=== PATIENT | female | born 1945 | race Caucasian/White ===

== ENCOUNTER 2018-04-28 17:19 | Inpatient (IN) | payer MEDICARE ==
--- NOTE | 2018-04-28 17:49 | ED ---
General Adult HPI - General Chief complaint: Chest Pain Stated complaint: Chest Pressure/Nausea Time Seen by Provider: 04/28/18 17:37 Source: patient, RN notes reviewed, old records reviewed Mode of arrival: wheelchair Limitations: no limitations - History of Present Illness Initial comments: This is a 72-year-old female to the ER for evaluation. Patient resents today for evaluation regarding chest pain. History of CAD history of high blood pressure high cholesterol. Patient has severe anterior chest pain or shortness of breath and diaphoresis prior to arrival. Patient's pain is waxing weighs was now improved. No recent travel history no sick contacts of fever cough or congestion - Related Data Home Medications Medication Instructions Recorded Confirmed Lisinopril Unknown Dose 1 tab PO DAILY 04/28/18 04/28/18 Metoprolol Unknown Dose 1 tab PO DAILY 04/28/18 04/28/18 Prozac Unknown Dose 1 tab PO DAILY 04/28/18 04/28/18 Zocor Unknown Dose 1 tab PO DAILY 04/28/18 04/28/18 Allergies Allergy/AdvReac Type Severity Reaction Status Date / Time No Known Allergies Allergy Verified 04/28/18 18:22 Review of Systems ROS Statement: Those systems with pertinent positive or pertinent negative responses have been documented in the HPI. ROS Other: All systems not noted in ROS Statement are negative. Past Medical History Past Medical History: Coronary Artery Disease (CAD), Hyperlipidemia, Hypertension History of Any Multi-Drug Resistant Organisms: None Reported Additional Past Surgical History / Comment(s): eyes Past Psychological History: No Psychological Hx Reported Smoking Status: Current every day smoker Past Alcohol Use History: Occasional Past Drug Use History: None Reported General Exam Limitations: no limitations General appearance: alert, in no apparent distress Head exam: Present: atraumatic, normocephalic, normal inspection Eye exam: Present: normal appearance, PERRL, EOMI. Absent: scleral icterus, conjunctival injection, periorbital swelling ENT exam: Present: normal exam, mucous membranes moist Neck exam: Present: normal inspection. Absent: tenderness, meningismus, lymphadenopathy Respiratory exam: Present: normal lung sounds bilaterally. Absent: respiratory distress, wheezes, rales, rhonchi, stridor Cardiovascular Exam: Present: regular rate, normal rhythm, normal heart sounds. Absent: systolic murmur, diastolic murmur, rubs, gallop, clicks GI/Abdominal exam: Present: soft, normal bowel sounds. Absent: distended, tenderness, guarding, rebound, rigid Extremities exam: Present: normal inspection, full ROM, normal capillary refill. Absent: tenderness, pedal edema, joint swelling, calf tenderness Back exam: Present: normal inspection Neurological exam: Present: alert, oriented X3, CN II-XII intact Psychiatric exam: Present: normal affect, normal mood Skin exam: Present: warm, dry, intact, normal color. Absent: rash Course Vital Signs 04/28/18 04/28/18 17:22 19:25 Temperature 97.4 F L Pulse Rate 76 82 Respiratory 18 20 Rate Blood Pressure 144/84 165/86 O2 Sat by Pulse 100 99 Oximetry - Reevaluation(s) Reevaluation #1: 04/28/18 21:31 Patient having recurrent chest pain currently, no diaphoresis no shortness of breath EKG Findings - EKG Comments: EKG Findings:: EKG shows normal sinus rhythm rate of 74, W[place] 164, QRS 138, QTC 5: 30 Medical Decision Making - Medical Decision Making 72 female the ER for evaluation. Patient presents today for evaluation of chest pain. CT suboptimal, troponin negative. Patient does have recurrent pain will be admitted for cardiac observation - Lab Data Result diagrams: 04/28/18 18:00 04/28/18 18:00 Lab Results 04/28/18 04/28/18 04/28/18 Range/Units 18:00 18:00 18:00 WBC 10.3 (3.8-10.6) k/uL RBC 4.30 (3.80-5.40) m/uL Hgb 12.7 (11.4-16.0) gm/dL Hct 39.4 (34.0-46.0) % MCV 91.6 (80.0-100.0) fL MCH 29.5 (25.0-35.0) pg MCHC 32.2 (31.0-37.0) g/dL RDW 14.3 (11.5-15.5) % Plt Count 276 (150-450) k/uL Neutrophils % 73 % Lymphocytes % 19 % Monocytes % 6 % Eosinophils % 1 % Basophils % 0 % Neutrophils # 7.5 (1.3-7.7) k/uL Lymphocytes # 1.9 (1.0-4.8) k/uL Monocytes # 0.6 (0-1.0) k/uL Eosinophils # 0.1 (0-0.7) k/uL Basophils # 0.0 (0-0.2) k/uL PT (9.0-12.0) sec INR (<1.2) APTT (22.0-30.0) sec D-Dimer (<0.60) mg/L FEU Sodium 141 (137-145) mmol/L Potassium 4.6 (3.5-5.1) mmol/L Chloride 102 (98-107) mmol/L Carbon Dioxide 24 (22-30) mmol/L Anion Gap 15 mmol/L BUN 24 H (7-17) mg/dL Creatinine 1.30 H (0.52-1.04) mg/dL Est GFR (CKD-EPI)AfAm 48 (>60 ml/min/1.73 sqM) Est GFR (CKD-EPI)NonAf 41 (>60 ml/min/1.73 sqM) Glucose 135 H (74-99) mg/dL Calcium 10.0 (8.4-10.2) mg/dL Magnesium 1.8 (1.6-2.3) mg/dL Total Bilirubin 0.4 (0.2-1.3) mg/dL AST 23 (14-36) U/L ALT 25 (9-52) U/L Alkaline Phosphatase 61 (38-126) U/L Total Creatine Kinase 51 (30-135) U/L CK-MB (CK-2) <0.2 (0.0-2.4) ng/mL CK-MB (CK-2) Rel Index Troponin I <0.012 (0.000-0.034) ng/mL Total Protein 7.9 (6.3-8.2) g/dL Albumin 4.6 (3.5-5.0) g/dL Lipase 143 (23-300) U/L 04/28/18 Range/Units 18:00 WBC (3.8-10.6) k/uL RBC (3.80-5.40) m/uL Hgb (11.4-16.0) gm/dL Hct (34.0-46.0) % MCV (80.0-100.0) fL MCH (25.0-35.0) pg MCHC (31.0-37.0) g/dL RDW (11.5-15.5) % Plt Count (150-450) k/uL Neutrophils % % Lymphocytes % % Monocytes % % Eosinophils % % Basophils % % Neutrophils # (1.3-7.7) k/uL Lymphocytes # (1.0-4.8) k/uL Monocytes # (0-1.0) k/uL Eosinophils # (0-0.7) k/uL Basophils # (0-0.2) k/uL PT 10.2 (9.0-12.0) sec INR 1.0 (<1.2) APTT 20.9 L (22.0-30.0) sec D-Dimer 4.32 H (<0.60) mg/L FEU Sodium (137-145) mmol/L Potassium (3.5-5.1) mmol/L Chloride (98-107) mmol/L Carbon Dioxide (22-30) mmol/L Anion Gap mmol/L BUN (7-17) mg/dL Creatinine (0.52-1.04) mg/dL Est GFR (CKD-EPI)AfAm (>60 ml/min/1.73 sqM) Est GFR (CKD-EPI)NonAf (>60 ml/min/1.73 sqM) Glucose (74-99) mg/dL Calcium (8.4-10.2) mg/dL Magnesium (1.6-2.3) mg/dL Total Bilirubin (0.2-1.3) mg/dL AST (14-36) U/L ALT (9-52) U/L Alkaline Phosphatase (38-126) U/L Total Creatine Kinase (30-135) U/L CK-MB (CK-2) (0.0-2.4) ng/mL CK-MB (CK-2) Rel Index Troponin I (0.000-0.034) ng/mL Total Protein (6.3-8.2) g/dL Albumin (3.5-5.0) g/dL Lipase (23-300) U/L - Radiology Data Radiology results: report reviewed (Chest x-ray negative CTA chest suboptimal), image reviewed Critical Care Time Critical Care Time: Yes Total Critical Care Time: 31 Disposition Clinical Impression: Chest pain Disposition: ADMITTED IP TO THIS [facility] Condition: Undetermined Instructions: Chest Pain (ED) Is patient prescribed a controlled substance at d/c from ED?: No Referrals: Nonstaff,Physician [REFERRING] - 1-2 days
[2018-04-28 18:38] LABS: Basophils % (A) 0 %; Eosinophils # (A) 0.1 k/uL (0-0.7); Eosinophils % (A) 1 %; HCT 39.4 % (34.0-46.0); HGB 12.7 gm/dL (11.4-16.0); Lymphocytes # (A) 1.9 k/uL (1.0-4.8); Lymphocytes % (A) 19 %; MCH 29.5 pg (25.0-35.0); MCHC 32.2 g/dL (31.0-37.0); MCV 91.6 fL (80.0-100.0); Monocytes # (A) 0.6 k/uL (0-1.0); Monocytes % (A) 6 %; Neutrophils # (A) 7.5 k/uL (1.3-7.7); Neutrophils % (A) 73 %; Platelet Count 276 k/uL (150-450); RDW 14.3 % (11.5-15.5); WBC 10.3 k/uL (3.8-10.6)
[2018-04-28 18:46] LABS: Albumin 4.6 g/dL (3.5-5.0); Magnesium 1.8 mg/dL (1.6-2.3); Potassium 4.6 mmol/L (3.5-5.1); Total Bilirubin 0.4 mg/dL (0.2-1.3); Total Protein 7.9 g/dL (6.3-8.2)
--- NOTE | 2018-04-28 18:57 | XR ---
EXAMINATION TYPE: XR chest 2V DATE OF EXAM: 04/28/2018 COMPARISON: NONE HISTORY: Chest pain TECHNIQUE: Frontal and lateral views of the chest are obtained. FINDINGS: There is no focal air space opacity, pleural effusion, or pneumothorax seen. The cardiac silhouette size is within normal limits. The osseous structures are intact. There are overlying car diac leads. Prominent lung volume may be indicative of COPD, there is eventration of the hemidiaphrag ms. Aortic stent graft present within the abdomen. Compression deformity present. The thoracic lumbar junction. Bone mineralization is reduced. IMPRESSION: No acute cardiopulmonary process.
[2018-04-28 18:59] LABS: Prothrombin Time 10.2 sec (9.0-12.0)
[2018-04-28 19:03] LABS: Creatine Kinase 51 U/L (30-135)
[2018-04-28 19:11] LABS: D-Dimer 4.32 mg/L FEU (<0.60); Partial Thromboplastin Time 20.9 sec (22.0-30.0)
[2018-04-28 19:17] LABS: Creatine Kinase MB <0.2 ng/mL (0.0-2.4); Troponin I <0.012 ng/mL (0.000-0.034)
[2018-04-28] MEDS ORDERED: SODIUM CHLORIDE 0.9% 500 ML IV STA (20:34)
[2018-04-28] MEDS ORDERED: SODIUM CHLORIDE 0.9% 1,000 ML IV STA (20:34)
[2018-04-28] MEDS ORDERED: ASPIRIN 81 MG PO STA (21:28)
[2018-04-28] MEDS ORDERED: HEPARIN SODIUM,PORCINE 5,000 UNIT/ML 1 ML VIAL IV PRN (21:28)
[2018-04-28] MEDS ORDERED: HEPARIN SODIUM,PORCINE 5,000 UNIT/ML 1 ML VIAL IV ONE (21:28)
[2018-04-28] MEDS ORDERED: NITROGLYCERIN SL TABS 0.4 MG TAB SUBLINGUAL PRN (21:28)
--- NOTE | 2018-04-28 21:58 | CT ---
EXAMINATION TYPE: CT angio chest DATE OF EXAM: 04/28/2018 COMPARISON: Chest x-ray same date HISTORY: Chest pain, vomiting and diaphoretic today. CT DLP: 151.7 mGycm Automated exposure control for dose reduction was used. CONTRAST: CTA scan of the thorax is performed with IV Contrast, patient injected with 60ml mL of Isovue 370, pu lmonary embolism protocol. MIP images are created and reviewed. 3D reconstructed images are created on an independent workstation and reviewed. FINDINGS: LUNGS: The lungs are grossly clear, there is no concerning parenchymal mass or nodule identified. Ex tensive emphysematous changes are present within the lungs There is no pleural effusion or pneumothor ax seen. The tracheobronchial tree is patent. AORTA: No additional significant abnormality is seen. MEDIASTINUM: There is is no pulmonary embolism evident however contrast bolus is limited for evaluati on. There are no greater than 1 cm hilar or mediastinal lymph nodes. No pericardial effusion is see n. There are coronary artery calcifications. OTHER: Nonhealed 11th of 10th rib fractures are present on the right. Aortic stent graft present within the abdomen at the level of the superior mesenteric artery IMPRESSION: EMPHYSEMA. CORONARY ARTERY DISEASE. EXAM NONDIAGNOSTIC TO EXCLUDE EMBOLUS.
--- NOTE | 2018-04-28 23:58 | P.HPIM ---
History of Present Illness H&P Date: 04/28/18 Chief Complaint: chest pain 72-year-old female with history of CAD and hypertension. Patient presented to the hospital due to sudden onset chest pressure retrosternal nonradiating associated with nausea and vomiting and diaphoresis. Denies any shortness of breath. 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 She denies any emotional stressors or any physical activity. However she does report that she had not ate anything all day. Patient denies any exertional dyspnea or chest pain. She admits to smoking a pack of cigarettes every day. In the emergency department she was found to have elevated d-dimer, EKG showing tachycardia, CT angiogram the chest was performed however was poor preparation was not conclusive regarding an embolus. However patient is not hypoxic denies any shortness of breath or chest pain at this time. Patient was also found to have elevated creatinine slightly, and elevated blood sugar. Patient otherwise denies any changes in her vision or hearing, denies any headache, denies any trouble breathing, denies any abdominal pain, denies any diarrhea or constipation, denies any changes in urinary habits, denies any focal neurologic Review of Systems Pertinent positives as noted in HPI. All other systems were reviewed and are negative Past Medical History Past Medical History: Coronary Artery Disease (CAD), Hyperlipidemia, Hypertension Additional Past Medical History / Comment(s): AAA status post stenting History of Any Multi-Drug Resistant Organisms: None Reported Additional Past Surgical History / Comment(s): eyes Past Psychological History: No Psychological Hx Reported Smoking Status: Current every day smoker Past Alcohol Use History: Occasional Past Drug Use History: None Reported - Past Family History Family Additional Family Medical History / Comment(s): Breast cancer runs in her maternal side of the family Medications and Allergies Home Medications Medication Instructions Recorded Confirmed Type Lisinopril Unknown Dose 1 tab PO DAILY 04/28/18 04/28/18 History Metoprolol Unknown Dose 1 tab PO DAILY 04/28/18 04/28/18 History Prozac Unknown Dose 1 tab PO DAILY 04/28/18 04/28/18 History Zocor Unknown Dose 1 tab PO DAILY 04/28/18 04/28/18 History Allergies Allergy/AdvReac Type Severity Reaction Status Date / Time No Known Allergies Allergy Verified 04/28/18 18:22 Physical Exam Vitals: Vital Signs Temp Pulse Resp BP Pulse Ox 04/28/18 21:26 98.3 F 76 20 189/84 99 04/28/18 20:30 77 20 170/84 99 04/28/18 19:25 82 20 165/86 99 04/28/18 17:22 97.4 F L 76 18 144/84 100 Intake and Output 04/28/18 04/28/18 04/28/18 06:59 14:59 22:59 Other: Weight 63.049 kg Constitutional: No acute distress, conversant, pleasant Eyes: Anicteric sclerae, moist conjunctiva, no lid-lag Pupils equal round reactive to light ENMT: NC/AT Oropharynx clear, no erythema, or exudates Neck: Supple, FROM, no masses, or JVD No carotid bruits No thyromegaly Lungs: Clear to auscultation Clear to percussion Normal respiratory effort, no accessory muscle use Cardiovascular: Heart regular in rate and rhythm, No murmurs, gallops, or rubs No peripheral edema Abdominal: Soft Nontender, no guarding, rebound or rigidity Abdomen moving with respiration Normoactive bowel sounds No hepatomegaly, No splenomegaly No palpable mass No abdominal wall hernia noted Skin: Normal temperature, tone, texture, turgor No induration No subcutaneous nodules No rash, lesions No ulcers Extremities: No digital cyanosis No clubbing Pedal pulses intact and symmetrical Radial pulses intact and symmetrical No calf tenderness Psychiatric: Alert and oriented to person, place and time Appropriate affect fair judgment Neuro Muscles Strength 5/5 in all 4 extremities Sensation to light touch grossly present throughout Cranial nerves II-XII grossly intact No focal sensory deficits Lymphatics: no palpable cervical or supraclavicular , or inguinal lymph nodes Results CBC & Chem 7: 04/28/18 18:00 04/28/18 18:00 Labs: Abnormal Lab Results - Last 24 Hours (Table) 04/28/18 04/28/18 Range/Units 18:00 18:00 APTT 20.9 L (22.0-30.0) sec D-Dimer 4.32 H (<0.60) mg/L FEU BUN 24 H (7-17) mg/dL Creatinine 1.30 H (0.52-1.04) mg/dL Glucose 135 H (74-99) mg/dL Assessment and Plan Assessment: 72-year-old female with history of CAD and hypertension and hypercholesterolemia and active smoking. Patient admitted to the hospital under observation with anticipated length of stay of less than 2 days for chest pain to rule out acute coronary syndrome. Patient was also found to have elevated creatinine with acute kidney injury. Plan: Chest pain with atypical features rule out ACS History of carotid artery disease Acute kidney injury was slightly elevated creatinine unknown baseline Tobacco smoking Continue with statin, aspirin, metoprolol Lisinopril on hold due to a care Monitor cardiac profile and troponins Cardiology consult Patient counseled to quit smoking Nicotine replacement therapy DVT prophylaxis with heparin subcu 3 times a day Continue with Prozac for depression Check A1c due to elevated blood sugar while patient fasting Surrogate decision-maker: Patient has been Aram CODE STATUS: Full code Discussed with: Patient, ER, RN Anticipated discharge: <[address]: Home A total of 55 minutes was spent on the care of this complex patient more than 50 % of the time was spent in counseling and care coordination.
[2018-04-29] MEDS: HEPARIN SOD,PORK IN 0.45% NACL 25,000 UNIT in 0.45% NACL 1 500ML.BAG IV SCH (00:06)
[2018-04-29] MEDS: METOPROLOL TARTRATE 25 MG TAB PO SCH ×3 (01:00→20:05)
[2018-04-29] MEDS ORDERED: ALPRAZolam 1 MG TAB PO SCH (01:04)
[2018-04-29 01:05] LABS: Creatine Kinase MB 1.8 ng/mL (0.0-2.4); Troponin I 0.021 ng/mL (0.000-0.034)
[2018-04-29 07:47] LABS: Mean Platelet Volume 7.1; Platelet Count 231 k/uL (150-450)
[2018-04-29 08:00] LABS: Cholesterol 152 mg/dL (<200); HDL Cholesterol 47 mg/dL (40-60); LDL Cholesterol,Calculated 82 mg/dL (0-99); Triglycerides 116 mg/dL (<150)
[2018-04-29 08:29] LABS: Creatine Kinase MB 1.5 ng/mL (0.0-2.4)
[2018-04-29 08:35] LABS: Troponin I 0.059 ng/mL (0.000-0.034)
--- NOTE | 2018-04-29 08:47 | P.CRDCN ---
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 The patient was in her usual state of health where she was in the car with her when she developed chest discomfort in the mid of the chest without any radiation but she did have nausea and she vomited in the car and also she felt clammy. No shortness of breath. No dizziness or lightheadedness. And no syncope. The EKG showed sinus rhythm with RBBB and nonspecific changes in the anteroseptal leads. The first 2 sets of cardiac enzymes came in to be normal but the third one came in to be slightly abnormal. The d-dimer came in to be abnormal and she underwent a computed tomography scan of the chest but the computed tomography scan was suboptimal and PE could not be ruled out completely. Beside that the kidney function are slightly abnormal but the blood work from yesterday and I am obtaining a blood work to check her kidney function later on today. Clinically the patient continues to be pain-free after she was admitted to the hospital. Past Medical History Past Medical History: Coronary Artery Disease (CAD), Hyperlipidemia, Hypertension Additional Past Medical History / Comment(s): AAA status post stenting History of Any Multi-Drug Resistant Organisms: None Reported Past Surgical History: Heart Catheterization With Stent Additional Past Surgical History / Comment(s): eyes Past Anesthesia/Blood Transfusion Reactions: No Reported Reaction Date of Last Stent Placement:: 2010 Past Psychological History: No Psychological Hx Reported Smoking Status: Current every day smoker Past Alcohol Use History: Occasional Past Drug Use History: None Reported - Past Family History Family Additional Family Medical History / Comment(s): Breast cancer runs in her maternal side of the family Medications and Allergies Home Medications Medication Instructions Recorded Confirmed Type Lisinopril Unknown Dose 1 tab PO DAILY 04/28/18 04/28/18 History Metoprolol Unknown Dose 1 tab PO DAILY 04/28/18 04/28/18 History Prozac Unknown Dose 1 tab PO DAILY 04/28/18 04/28/18 History Zocor Unknown Dose 1 tab PO DAILY 04/28/18 04/28/18 History ALPRAZolam [Xanax] 1 mg PO HS 04/29/18 04/29/18 History Allergies Allergy/AdvReac Type Severity Reaction Status Date / Time No Known Allergies Allergy Verified 04/28/18 18:22 Physical Exam Vitals: Vital Signs Temp Pulse Pulse Resp BP BP Pulse Ox 04/29/18 07:28 97.9 F 65 18 124/68 95 04/29/18 04:23 18 04/29/18 04:00 97.7 F 73 18 127/76 94 L 04/29/18 01:00 18 04/29/18 00:27 97.7 F 74 18 196/101 96 04/28/18 23:00 98.1 F 81 20 172/83 98 04/28/18 21:26 98.3 F 76 20 189/84 99 04/28/18 20:30 77 20 170/84 99 04/28/18 19:25 82 20 165/86 99 04/28/18 17:22 97.4 F L 76 18 144/84 100 Intake and Output 04/28/18 04/29/18 04/29/18 22:59 06:59 14:59 Other: Voiding Method Toilet # Voids 1 Weight 63.049 kg - Constitutional General appearance: no acute distress - Respiratory Respiratory: bilateral: CTA - Cardiovascular Rhythm: regular Heart sounds: normal: S1, S2 Results 04/29/18 06:28 04/28/18 18:00 Cardiac Enzymes 04/28/18 04/28/18 04/29/18 Range/Units 18:00 18:00 00:14 AST 23 (14-36) U/L CK-MB (CK-2) <0.2 1.8 (0.0-2.4) ng/mL Troponin I <0.012 0.021 (0.000-0.034) ng/mL 04/29/18 Range/Units 06:28 AST (14-36) U/L CK-MB (CK-2) 1.5 (0.0-2.4) ng/mL Troponin I 0.059 H* (0.000-0.034) ng/mL Coagulation 04/28/18 04/28/18 04/29/18 Range/Units 18:00 22:09 06:28 PT 10.2 (9.0-12.0) sec APTT 20.9 L 22.2 49.2 H (22.0-30.0) sec Lipids 04/29/18 Range/Units 06:28 Triglycerides 116 (<150) mg/dL Cholesterol 152 (<200) mg/dL HDL Cholesterol 47 (40-60) mg/dL CBC 04/28/18 04/29/18 Range/Units 18:00 06:28 WBC 10.3 (3.8-10.6) k/uL RBC 4.30 (3.80-5.40) m/uL Hgb 12.7 (11.4-16.0) gm/dL Hct 39.4 (34.0-46.0) % Plt Count 276 231 (150-450) k/uL Comprehensive Metabolic Panel 04/28/18 Range/Units 18:00 Sodium 141 (137-145) mmol/L Potassium 4.6 (3.5-5.1) mmol/L Chloride 102 (98-107) mmol/L Carbon Dioxide 24 (22-30) mmol/L BUN 24 H (7-17) mg/dL Creatinine 1.30 H (0.52-1.04) mg/dL Glucose 135 H (74-99) mg/dL Calcium 10.0 (8.4-10.2) mg/dL AST 23 (14-36) U/L ALT 25 (9-52) U/L Alkaline Phosphatase 61 (38-126) U/L Total Protein 7.9 (6.3-8.2) g/dL Albumin 4.6 (3.5-5.0) g/dL Current Medications Generic Name Dose Route Start Last Admin Trade Name Freq PRN Reason Stop Dose Admin Alprazolam 1 mg 04/29/18 01:04 04/29/18 02:21 Xanax PO 1 mg HS AMY Administration Aspirin 325 mg 04/29/18 09:00 Aspirin PO DAILY [facility] Atorvastatin Calcium 80 mg 04/29/18 09:00 Lipitor PO DAILY [facility] Heparin Sodium (Porcine) 0 unit 04/28/18 21:28 Heparin IV Q6HR PRN Low PTT Protocol Heparin Sodium/Sodium Chloride 500 mls @ 15.13 mls/hr 04/28/18 21:30 00:06 25,000 unit/ Sodium Chloride IV 12 units/kg/hr .Q24H AMY 15.13 mls/hr Administration Protocol 12 UNITS/KG/HR Metoprolol Tartrate 25 mg 04/29/18 00:35 04/29/18 01:00 Lopressor PO 25 mg BID AMY Administration Nitroglycerin 0.4 mg 04/28/18 21:28 Nitrostat SUBLINGUAL Q5M PRN Chest Pain Intake and Output 04/28/18 04/29/18 04/29/18 22:59 06:59 14:59 Other: Voiding Method Toilet # Voids 1 Weight 63.049 kg 04/29/18 06:28 04/28/18 18:00 Assessment and Plan Assessment: Assessment #1 acute non-ST elevation myocardial infarction. #2 elevated d-dimer. The CT was suboptimal for PE #3 known coronary artery disease and status post stenting with unknown details. The stenting was performed out of the town in 2010 #4 peripheral arterial disease and status post aortic stent graft was performed in 2000 also out of the town #5 significant history of smoking Plan #1 giving the patient symptoms and abnormal cardiac enzymes and also abnormal EKG I did recommend proceeding with a coronary angiogram. #2 I am in process of obtaining kidney function to check the creatinine. I will plan to pursue with a heart cath either this afternoon or tomorrow morning. #3 meanwhile continue the current medical treatment which include aspirin, high intensity statin, and metoprolol and also heparin IV #4 obtain an echocardiogram was Doppler to assess the LV function and for wall motion abnormalities #5 follow-up with the patient Thank you for allowing us but spitting her care and we'll continue following up with the patient
[2018-04-29] MEDS ORDERED: METOPROLOL TARTRATE 25 MG TAB PO SCH (09:00)
[2018-04-29 09:35] LABS: Calcium 8.8 mg/dL (8.4-10.2)
--- NOTE | 2018-04-29 10:42 | NM ---
EXAMINATION TYPE: NM pul vent and perfuse DATE OF EXAM: 04/29/2018 COMPARISON: Chest x-ray and CT chest 04/28/2018 HISTORY: Pulmonary embolism, chest pain TECHNIQUE: Utilizing inhalation of 33.0 mCi Tc 99m DTPA aerosol and intravenous injection of 4.65 mC i of Tc 99m MAA, ventilation and perfusion images are acquired post injection in multiple projections . FINDINGS: Overall perfusion images show better radiopharmaceutical uptake on ventilation imaging. There is some central clumping of the radiopharmaceutical especially within the left lung. Some matched defects ar e present in the upper lobes. Emphysematous changes are present within the lungs. IMPRESSION: Low probability for pulmonary embolism. COPD.
[2018-04-29] MEDS: ASPIRIN 325 MG TAB PO SCH (10:46)
[2018-04-29] MEDS: ATORVASTATIN 80 MG TAB PO SCH (10:46)
[2018-04-29] MEDS ORDERED: SODIUM CHLORIDE 0.9% 1,000 ML in EMPTY BAG 1 BAG IV ONE (11:45)
[2018-04-29] MEDS ORDERED: ALPRAZolam 0.25 MG TAB PO PRN (11:45)
[2018-04-29] MEDS ORDERED: ALPRAZolam 0.5 MG TAB PO PRN (11:45)
[2018-04-29] MEDS ORDERED: NITROGLYCERIN SL TABS 0.4 MG TAB SUBLINGUAL PRN ×2 (11:45→15:50)
[2018-04-29] MEDS ORDERED: ASPIRIN 325 MG TAB PO STA (11:45)
[2018-04-29] MEDS ORDERED: ATORVASTATIN 80 MG TAB PO STA (11:45)
--- NOTE | 2018-04-29 14:16 | P.PN ---
Subjective Progress Note Date: 04/29/18 Principal diagnosis: Chest pain Patient is a 72-year-old female with a past medical history of coronary artery disease status post prior PCI, dyslipidemia, and hypertension who presented to the hospital with complaints of chest pain. She was admitted for cardiac monitoring. Her third troponin became positive. She was seen by cardiology who plans for cardiac catheterization. Patient seen and examined at bedside. She is currently chest pain-free, no shortness breath, no nausea, and no vomiting. Objective - Vital Signs Vital signs: Vital Signs Temp 98.4 F 04/29/18 11:34 Pulse 66 04/29/18 11:34 Resp 18 04/29/18 11:34 BP 162/77 04/29/18 11:34 Pulse Ox 96 04/29/18 11:34 Intake & Output 04/28/18 04/29/18 04/29/18 18:59 06:59 18:59 Weight 63.049 kg 63.049 kg Other: Voiding Method Toilet # Voids 1 3 - Exam General: non toxic, no distress, appears at stated age Derm: warm, dry Head: atraumatic, normocephalic, symmetric Eyes: EOMI, lateral deviation of left eye, no lid lag, anicteric sclera Mouth: no lip lesion, mucus membranes moist Cardiovascular: S1S2 reg, no murmur, positive posterior tibial pulse bilateral, Lungs: CTA bilateral, no rhonchi, no rales , no accessory muscle use Abdominal: soft, nontender to palpation, no guarding, no appreciable organomegaly Ext: no gross muscle atrophy, no edema, no contractures Neuro: CN II-XI grossly intact, no focal neuro deficits Psych: Alert, oriented, appropriate affect - Labs CBC & Chem 7: 04/29/18 06:28 04/29/18 06:28 Labs: Abnormal Lab Results - Last 24 Hours (Table) 04/28/18 04/28/18 04/29/18 Range/Units 18:00 18:00 06:28 APTT 20.9 L 49.2 H (22.0-30.0) sec D-Dimer 4.32 H (<0.60) mg/L FEU BUN 24 H (7-17) mg/dL Creatinine 1.30 H (0.52-1.04) mg/dL Glucose 135 H (74-99) mg/dL Troponin I (0.000-0.034) ng/mL 04/29/18 04/29/18 Range/Units 06:28 06:28 APTT (22.0-30.0) sec D-Dimer (<0.60) mg/L FEU BUN 21 H (7-17) mg/dL Creatinine 1.05 H (0.52-1.04) mg/dL Glucose (74-99) mg/dL Troponin I 0.059 H* (0.000-0.034) ng/mL Assessment and Plan Assessment: Non-ST segment elevated myocardial infarction with history of coronary artery disease -Heparin drip -Aspirin -Telemetry -Plan is for cardiac catheterization today -Beta philly -Statin Hypertension -Metoprolol and lisinopril -Follow blood pressures Dyslipidemia -LDL 82 which is at or near baseline -Continue with Lipitor -Likely Lipitor over simvastatin on discharge but could likely be decreased to 40 mg daily. HPI with unknown baseline -Rapidly improving -Repeat labs in a.m. -Continue IV fluid with tenorio contrast for heart catheterization Tobacco abuse -Cessation -Hold off on nicotine replacement currently DVT prophylaxis: heparin gtt Discussed with: nursing, patient Anticipated discharge: 04/30/[address]: home A total of 25 minutes was spent on the care of this complex patient more than 50 % of the time was spent in counseling and care coordination.
[2018-04-29] MEDS ORDERED: VERAPAMIL 2.5 MG/ML 2 ML AMP ONE (14:35)
[2018-04-29] MEDS ORDERED: MIDAZOLAM 2 MG/2 ML VIAL ONE (14:35)
[2018-04-29] MEDS ORDERED: HEPARIN SODIUM 1,000 UN/ML (10ML VL) ONE ×2 (14:36→15:08)
[2018-04-29] MEDS: MIDAZOLAM 2 MG/2 ML VIAL IVP ONE ×2 (15:05→15:25)
[2018-04-29] MEDS ORDERED: LIDOCAINE 2% INJ 20 MG/ML SQ ONE (15:06)
[2018-04-29] MEDS: VERAPAMIL SYRINGE (5 MG/10 ML) INTRAARTER ONE ×2 (15:06→15:45)
[2018-04-29] MEDS ORDERED: BIVALIRUDIN BOLUS 250 MG/50 ML IV ONE (15:24)
[2018-04-29] MEDS ORDERED: BIVALIRUDIN 250 MG in SODIUM CHLORIDE 0.9% 50 ML IV ONE (15:25)
[2018-04-29] MEDS: NITROGLYCERIN 1000MCG/10ML SYRINGE INTRACORON ONE ×2 (15:31→15:41)
[2018-04-29] MEDS ORDERED: CLOPIDOGREL 75 MG TAB ONE (15:38)
[2018-04-29] MEDS ORDERED: CLOPIDOGREL 75 MG TAB PO ONE (15:42)
[2018-04-29] MEDS ORDERED: IOPAMIDOL-370 125ML BTL INJ ONE (15:46)
[2018-04-29] MEDS ORDERED: ZOLPIDEM 5 MG TAB PO PRN (15:50)
[2018-04-29] MEDS ORDERED: MAG HYDROX/AL HYDROX/SIMETH 30 ML CUP PO PRN (15:50)
[2018-04-29] MEDS ORDERED: RX INFO: IV CONTRAST WAS GIVEN 1 EACH MISC MISCELLANE PRN (15:50)
[2018-04-29] MEDS ORDERED: ATROPINE SULFATE 0.1 MG/ML 10ML SYRINGE IV PRN (15:50)
[2018-04-29] MEDS ORDERED: SODIUM CHLORIDE 0.9% 1,000 ML IV SCH (16:00)
--- NOTE | 2018-04-29 20:47 | ECHOF ---
Referral Reason:nstemi MEASUREMENTS -------- HEIGHT: 170.2 cm WEIGHT: 63.0 kg BP: RVIDd: 2.8 cm (< 3.3) IVSd: 1.3 cm (0.6 - 1.1) LVIDd: 4.3 cm (3.9 - 5.3) LVPWd: 1.1 cm (0.6 - 1.1) IVSs: 1.6 cm LVIDs: 3.0 cm LVPWs: 1.6 cm LAESV Index (A-L): 29.32 ml/m Ao Diam: 2.8 cm (2.0 - 3.7) AV Cusp: 1.6 cm (1.5 - 2.6) LA Diam: 3.4 cm (2.7 - 3.8) MV EXCURSION: 11.106 mm (> 18.000) MV EF SLOPE: 53 mm/s (70 - 150) EPSS: 0.6 cm MV E Daniel: 0.84 m/s MV DecT: 225 ms MV A Daniel: 1.06 m/s MV E/A Ratio: 0.79 AR PHT: 496 ms RAP: 5.00 mmHg RVSP: 15.76 mmHg FINDINGS -------- Sinus rhythm. This was a technically good study. The left ventricular size is normal. There is mild concentric left ventricular hypertrophy. Overa ll left ventricular systolic function is normal with, an EF between 55 - 60 %. The right ventricle is normal in size and function. LA is midly dilated 29-33ml/m2. The right atrium is normal in size. Aortic valve is trileaflet and is mildly thickened. There is mild aortic regurgitation. The mitral valve leaflets are mildly thickened. [id number] mitral regurgitation is present. Mild tricuspid regurgitation present. The right ventricular systolic pressure, as measured by Doppl er, is 15.76mmHg. Pulmonic valve appears structurally normal. The aortic root size is normal. Normal inferior vena cava with normal inspiratory collapse consistent with estimated right atrial pre ssure of 5 mmHg. The pericardium is normal. CONCLUSIONS -------- 1. Sinus rhythm. 2. This was a technically good study. 3. The left ventricular size is normal. 4. There is mild concentric left ventricular hypertrophy. 5. Overall left ventricular systolic function is normal with, an EF between 55 - 60 %. 6. The right ventricle is normal in size and function. 7. LA is midly dilated 29-33ml/m2. 8. The right atrium is normal in size. 9. Aortic valve is trileaflet and is mildly thickened. 10. There is mild aortic regurgitation. 11. The mitral valve leaflets are mildly thickened. 12. Wsgj-nn-eplpkgph mitral regurgitation is present. 13. Mild tricuspid regurgitation present. 14. The right ventricular systolic pressure, as measured by Doppler, is 15.76mmHg. 15. Pulmonic valve appears structurally normal. 16. The aortic root size is normal. 17. Normal inferior vena cava with normal inspiratory collapse consistent with estimated right atrial pressure of 5 mmHg. 18. The pericardium is normal. TELEVISION MAINTENANCE WORKER: Becky Johns RDCS
--- NOTE | 2018-04-29 22:00 | CC ---
CARDIAC CATHETERIZATION REPORT DATE OF SERVICE: April 29, 2018 PERFORMING PHYSICIAN: Agustín Taylor MD, manufacturing project manager. PROCEDURE PERFORMED: 1. Left heart catheterization. 2. 3. Successful stenting of the left circumflex using 2.5 x 18 x 15 mm Xience NEIDA with good angiographic results. INDICATION: This is a pleasant 72-year-old female patient with known history of coronary artery disease and prior stenting of the LAD was performed at [facility] in the past, as well as known history of aortic stent graft and significant history of smoking, presented to the hospital with chest discomfort and ruled in for acute non ST elevation myocardial infarction. The heart catheterization was advised. APPROACH: Right radial artery. COMPLICATION: None. LEVEL OF SEDATION: Moderate with a sedation length of 42 minutes. PROCEDURE DESCRIPTION: After obtaining an informed consent, the patient was brought to the cardiac research laboratory technician. The right radial artery was cannulated using micropuncture technique and a micropuncture wire passed easily. Then I placed a 6-Pashto sheath in the right radial artery. After that, I did selective right and left coronary angiogram using JR4 and JL3.5 catheters. Left heart catheterization was performed using the JR4 catheter which flipped into the LV then with full pullback across aortic valve. The procedure was completed without any complication. After that I did perform angioplasty and stenting of the OM branch of the left circumflex. Please see a separate paragraph for that. SELECTIVE CORONARY ANGIOGRAM: 1. The right coronary artery is a moderate caliber vessel and it is a nondominant vessel. It is angiographically normal. 2. The left main is a short left main but angiographically normal. It bifurcates into a dominant left circumflex and left anterior descending artery. 3. Left circumflex is a large caliber vessel. It is a dominant vessel. The proximal circ has mild disease only and gives rise into a first OM branch which is a large caliber vessel with critical disease in the midportion. The mid left circumflex appeared to be angiographically normal. The left circumflex distally just by the bifurcation into PDA and PLV branch has another lesion appeared to be in the range of 60% to 70%. 4. The LAD: The proximal LAD appeared to be stented and the stent is patent. The mid and distal LAD appear to have mild disease only. The LAD gives rise into midportion into 2 diagonal branches. PCI OF THE LEFT CIRCUMFLEX: Anticoagulation was initiated using Angiomax. Subsequently I took a JL3.5 guide and the left main was engaged. A Whisper wire was used to wire the off 1st obtuse marginal branch of the left circumflex. I did balloon angioplasty using 2 5 x 12 mm balloon before I deployed 2.5 x 50 m Xience NEIDA where the stent was positioned under fluoroscopy guidance and deployed under its nominal pressure. The following angiogram showed good angiographic results and the procedure was completed without any complication. CONCLUSION: 1. Acute non ST elevation myocardial infarction. 2. Known history of coronary artery disease and prior stenting of the LAD. 3. Known history of peripheral arterial disease and prior aortic stent graft. 4. Calcified left coronary system. 5. Critical disease involving the first obtuse marginal branch of the left circumflex and moderate to severe disease involving distal left circumflex. 6. Patent stent in the proximal LAD. 7. Successful stenting of the first obtuse marginal branch of the left circumflex as described above. POSTPROCEDURE MANAGEMENT: 1. Maximize medical treatment. 2. Follow up with the patient. MMODL / IJN: [id number] /
[2018-04-29] MEDS: ALPRAZolam 1 MG TAB PO SCH (23:08)
[2018-04-30 06:21] LABS: Basophils % (A) 1 %; Eosinophils # (A) 0.2 k/uL (0-0.7); Eosinophils % (A) 2 %; HGB 10.8 gm/dL (11.4-16.0); Lymphocytes # (A) 1.3 k/uL (1.0-4.8); Lymphocytes % (A) 19 %; MCH 29.9 pg (25.0-35.0); MCHC 31.6 g/dL (31.0-37.0); MCV 94.7 fL (80.0-100.0); Mean Platelet Volume 6.6; Monocytes # (A) 0.5 k/uL (0-1.0); Monocytes % (A) 7 %; Neutrophils # (A) 4.7 k/uL (1.3-7.7); Neutrophils % (A) 69 %; Platelet Count 216 k/uL (150-450); RDW 14.5 % (11.5-15.5); WBC 6.8 k/uL (3.8-10.6)
[2018-04-30 06:50] LABS: Calcium 8.9 mg/dL (8.4-10.2); Potassium 3.7 mmol/L (3.5-5.1)
[2018-04-30] MEDS ORDERED: CLOPIDOGREL 75 MG TAB PO SCH (09:00)
[2018-04-30] MEDS ORDERED: FLUoxetine HCL 20 MG CAP PO SCH (09:00)
[2018-04-30] MEDS ORDERED: LISINOPRIL 20 MG TAB PO SCH (09:00)
[2018-04-30] MEDS: ALPRAZolam 1 MG TAB PO SCH (09:51)
[2018-04-30] MEDS: ASPIRIN 325 MG TAB PO SCH (09:51)
[2018-04-30] MEDS: METOPROLOL TARTRATE 25 MG TAB PO SCH (09:51)
[2018-04-30] MEDS: ATORVASTATIN 80 MG TAB PO SCH (09:51)
--- NOTE | 2018-04-30 09:58 | P.PN ---
Subjective Progress Note Date: 04/30/18 Principal diagnosis: Non-STEMI This is a 72-year-old female who presented to the hospital with a non- ST elevation myocardial infarction. History of coronary artery disease with prior stent placement, history of abdominal aortic aneurysm status post aortic stent, nicotine dependence, hypertension, hyperlipidemia, she was taken to the cardiac catheterization lab where she underwent angioplasty and stenting of the OM. EKG this morning shows normal sinus rhythm with no changes from post-PCI. Blood pressure 140/70 rate in the 60s, 95% on room air. White blood cell count 6.8, hemoglobin 10.8, platelet count 216. Sodium 141, potassium 3.7, BUN 14, creatinine 0.8. She denies any chest discomfort or difficulty in breathing, slept well through the night last night. Objective - Vital Signs Vital signs: Vital Signs Temp 97.0 F L 04/30/18 03:35 Pulse 67 04/30/18 03:35 Resp 15 04/30/18 08:00 BP 140/77 04/30/18 03:35 Pulse Ox 95 04/30/18 09:01 Intake & Output 04/29/18 04/30/18 04/30/18 18:59 06:59 18:59 Intake Total 287.75 Balance 287.75 Weight 64.7 kg Intake: IV 107.75 Oral 180 Other: Voiding Method Toilet Toilet Toilet # Voids 3 1 1 - Exam PHYSICAL EXAMINATION: GENERAL: This 72-year-old female in no apparent distress examination. HEENT: Head is atraumatic, normocephalic. Pupils equal, round. Sclera anicteric. Conjunctiva are clear. Mucous membranes of the mouth are moist. Neck is supple. There is no elevated jugular venous pressure.] No carotid bruit is heard. HEART EXAMINATION: Heart S1, S2 normal. No murmur or gallop heard. CHEST EXAMINATION: Lungs are clear to auscultation and precussion. No chest wall tenderness is noted on palpation or with deep breathing. ABDOMEN: Soft, nontender. Bowel sounds are heard. No organomegaly noted. EXTREMITIES: 2+ peripheral pulses with no evidence of peripheral edema and no calf tenderness noted. Right radial site soft, no evidence of any hematoma, good distal pulse. NEUROLOGIC patient is awake, alert and oriented OX3. . - Labs CBC & Chem 7: 04/30/18 05:25 04/30/18 05:25 Labs: Abnormal Lab Results - Last 24 Hours (Table) 04/30/18 04/30/18 Range/Units 05:25 05:25 RBC 3.60 L (3.80-5.40) m/uL Hgb 10.8 L (11.4-16.0) gm/dL Chloride 108 H (98-107) mmol/L Assessment and Plan Plan: Assessment and plan #1 non-ST elevation myocardial infarction status post angioplasty and stenting of the OM #2 known history of coronary artery disease with prior PCI #3 history of abdominal aortic aneurysm status post aortic stent graft #4 hypertension #5 nicotine dependence #6 hyperlipidemia Plan From cardiology's perspective, patient may be able to be discharged home today. We will make her a follow-up appointment to see Dr. Adams in the office in one week. She's been educated regarding the importance of nicotine cessation. She will be discharged home on aspirin 325 mg daily, Lipitor 80 mg daily, Plavix 75 mg daily, lisinopril 20 mg daily, metoprolol 25 mg by mouth twice a day and sublingual nitroglycerin as needed for chest pain. Patient has been encouraged regarding her medication she has been provided prescriptions for her new meds. DNP note has been reviewed, I agree with a documented findings and plan of care. Patient was seen and examined.
[2018-04-30 10:04] VITALS: TEMP 98.4
[2018-04-30] MEDS: HEPARIN SOD,PORK IN 0.45% NACL 25,000 UNIT in 0.45% NACL 1 500ML.BAG IV SCH (10:54)
[2018-04-30 11:18] VITALS: BMI 22.3
[2018-04-30 11:50] VITALS: BP 138/70; PULSE 67; RESP 18
--- NOTE | 2018-04-30 13:42 | P.DS ---
Providers Date of admission: 04/29/18 10:46 Expected date of discharge: 04/30/18 Attending physician: Viki Gan MD Consults: 04/28/18 21:28 Consult Physician Urgent Consulting Provider: Starla Powell Consult Reason/Comments: cp Do you want consulting provider notified?: Yes 04/29/18 15:50 Consult Physician Routine Consulting Provider: [facility] Consult Reason/Comments: Post Interventional patient Do you want consulting provider notified?: Already Contacted Primary care physician: Chantelle Russo - [place] Diagnosis(es) (1) NSTEMI (non-ST elevated myocardial infarction) Status: Acute (2) FLOR (acute kidney injury) Status: Acute (3) Essential hypertension Status: Acute (4) Hyperlipidemia Status: Acute (5) Coronary artery disease Status: Acute (6) Nicotine dependence Status: Acute Hospital Course: This is a 72-year-old female who presented to the hospital with chest pain and was found to have a non-ST elevation myocardial infarction. History of coronary artery disease with prior stent placement, history of abdominal aortic aneurysm status post aortic stent, nicotine dependence, hypertension, hyperlipidemia, she was taken to the cardiac catheterization lab where she underwent angioplasty and stenting of the OM. EKG this morning shows normal sinus rhythm with no changes from post-PCI. Blood pressure 140/70 rate in the 60s, 95% on room air. Patient was educated on importance of nicotine cessation and was discharged home on aspirin 325 g by mouth daily, Lipitor 80 mg daily, Plavix 75 mg by mouth daily, lisinopril 20 mg by mouth daily, and metoprolol 25 mg by mouth twice a day and sublingual nitroglycerin as needed for chest pain. On presentation the patient was noted to have a mild acute kidney injury this resolved with hydration. Patient does have follow-up appointment with Dr. Adams in 1 week. This discharge process took approximately 35 minutes. Patient Condition at Discharge: Stable Plan - Discharge Summary New Discharge Prescriptions: New Aspirin 325 mg PO DAILY #30 tab Atorvastatin [Lipitor] 80 mg PO DAILY #30 tab Clopidogrel [Plavix] 75 mg PO DAILY #30 tab Metoprolol Tartrate [Lopressor] 25 mg PO BID #60 tab Nitroglycerin Sl Tabs [Nitrostat] 0.4 mg SUBLINGUAL Q5M PRN #25 tab PRN Reason: Chest Pain Continue Lisinopril [Zestril] 20 mg PO DAILY Discontinued Simvastatin [Zocor] 40 mg PO DAILY Metoprolol Succinate [Toprol XL] 25 mg PO DAILY No Action ALPRAZolam [Xanax] 1 mg PO BID FLUoxetine HCL [PROzac] 20 mg PO DAILY Discharge Medication List ALPRAZolam [Xanax] 1 mg PO BID 04/29/18 [History] FLUoxetine HCL [PROzac] 20 mg PO DAILY 04/29/18 [History] Lisinopril [Zestril] 20 mg PO DAILY 04/29/18 [History] Aspirin 325 mg PO DAILY #30 tab 04/30/18 [Rx] Atorvastatin [Lipitor] 80 mg PO DAILY #30 tab 04/30/18 [Rx] Clopidogrel [Plavix] 75 mg PO DAILY #30 tab 04/30/18 [Rx] Metoprolol Tartrate [Lopressor] 25 mg PO BID #60 tab 04/30/18 [Rx] Nitroglycerin Sl Tabs [Nitrostat] 0.4 mg SUBLINGUAL Q5M PRN #25 tab 04/30/18 [Rx ] Follow up Appointment(s)/Referral(s): Agustín Taylor MD [STAFF PHYSICIAN] - 05/08/18 3:15 pm (Monday) Chantelle Russo MD [Primary Care Provider] - 05/07/18 3:15 pm (Monday) Patient Instructions/Handouts: *Surgery [facility] - After Heart Catheterization - Recycle Coordinator Instructions, Left Heart Catheterization (DC) Discharge Disposition: HOME SELF-CARE
[2018-04-30 15:19] LABS: Hemoglobin A1C 5.9 % (4.0-6.0)
== END 2018-04-30 16:14 | disposition home or self-care (01) | DRG 247 ==
LOC: EC 17:19 → 3OBS 21:28 → OBSVTOIN 04-29 10:46 → 6SEL 04-29 16:02
PROVIDERS: ADMIT Internal Medicine; ATTEND Internal Medicine
PROC: 4A023N7 Measurement of Cardiac Sampling and Pressure, Left Heart, Percutaneous Approach (ICD-10-PCS; principal; 2018-04-29 14:30)
PROC: B2111ZZ Fluoroscopy of Multiple Coronary Arteries using Low Osmolar Contrast (ICD-10-PCS; principal; 2018-04-29 14:30)
PROC: 027034Z Dilation of Coronary Artery, One Artery with Drug-eluting Intraluminal Device, Percutaneous Approach (ICD-10-PCS; principal; 2018-04-29 14:30)
DX: I21.4 Non-ST elevation (NSTEMI) myocardial infarction (principal); N17.9 Acute kidney failure, unspecified; I25.84 Coronary atherosclerosis due to calcified coronary lesion; I25.10 Atherosclerotic heart disease of native coronary artery without angina pectoris; I10 Essential (primary) hypertension; E78.5 Hyperlipidemia, unspecified; E78.00 Pure hypercholesterolemia, unspecified; F17.210 Nicotine dependence, cigarettes, uncomplicated; F32.9 Major depressive disorder, single episode, unspecified; I45.10 Unspecified right bundle-branch block; I73.9 Peripheral vascular disease, unspecified; R79.1 Abnormal coagulation profile; Z95.5 Presence of coronary angioplasty implant and graft; Z95.818 Presence of other cardiac implants and grafts; Z80.3 Family history of malignant neoplasm of breast; Z71.6 Tobacco abuse counseling
CPT/HCPCS: 36415; 71046; 71275; 78582; 80048; 80053; 80061; 82550; 82553; 83036; 83690; 83735; 84484; 85025; 85049; 85379; 85610; 85730; 93005; 93306; 93458; 94760; 96361; 96374; 99291